=== PATIENT | male | born 1995 | race Two or more races ===

== ENCOUNTER 2020-10-02 19:17 | Emergency (ER) | payer SELFPAY ==
[~2020-10-02] VITALS: Ht 172.7 cm; Wt 90.7 kg
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
--- NOTE | 2020-10-02 19:43 | NUR ---
BROUGHT FOR XRAY.
[2020-10-02] MEDS ORDERED: TRAMADOL HCL 50 MG TABLET ONE (19:45)
[2020-10-02] MEDS ORDERED: TRAMADOL HCL 50 MG TABLET PO ONE (20:00)
[2020-10-02 22:14] VITALS: BP 122/68
--- NOTE | 2020-10-02 22:14 | NUR ---
Patient discharged to home in stable condition. Written and verbal after care instructions given. Patient verbalizes understanding of instruction and RX. Pt left before recieving the CD. vss. Ambulated out of E.D. with steady gait.
== END 2020-10-02 22:15 | disposition home or self-care (01) ==
LOC: ER 19:19
DX: M25.512 Pain in left shoulder (principal); M25.522 Pain in left elbow; V49.49XA Driver injured in collision with other motor vehicles in traffic accident, initial encounter; Y93.89 Activity, other specified; Y92.488 Other paved roadways as the place of occurrence of the external cause; Y99.8 Other external cause status
CPT/HCPCS: 71250-TC; 73030-TC